=== PATIENT | female | born 1960 | race Caucasian/White ===

== ENCOUNTER 2016-08-25 07:44 | Inpatient (IN) | payer OTHER ==
[~2016-08-25] VITALS: Ht 165.1 cm; Wt 73.9 kg
[~2016-08-25 07:44] MED LIST: ADVIL,NUPRIN,M200 MG PO; DURAGESIC12 MCG TD; DURAGESIC25 MCG TD; KLONOPIN0.5 M1 PO; LIPITOR20 MG PO; LODINE200 MG PO; MORPHINE SULFAT15 M1 PO; NAPROXEN500 MG PO; NEURONTIN400 MG PO; NEURONTIN600 MG PO; PERCOCET 10/1 TABLET PO; PERCOCET 7.51 TABLET PO; PRILOSEC OTC20 MG PO; SAVELLA50 MG PO; TRAMADOL HCL50 MG PO; WELLBUTRIN XL150 MG PO
[2016-08-25 08:15] VITALS: BP 113/81
[2016-08-25 17:59] VITALS: BP 142/76
[2016-08-25 19:46] VITALS: BP 102/60
[2016-08-25 20:00] VITALS: BP 102/60
[2016-08-26 00:10] VITALS: BP 93/51
[2016-08-26 04:00] VITALS: BP 100/52
[2016-08-26 08:00] VITALS: BP 107/61
[2016-08-26 12:02] VITALS: BP 109/58
[2016-08-26] MEDS ORDERED: CYCLOBENZAPRINE10 MG PO (15:41)
[2016-08-26] MEDS ORDERED: OXYCODONE HCL15 MG PO (15:44)
[2016-08-26 16:18] VITALS: BP 105/61
== END 2016-08-26 17:41 | disposition home or self-care (01) | DRG 460 ==
LOC: 2SOUTH 07:44 → 3EAST 17:49
DX: M43.16 Spondylolisthesis, lumbar region (principal); M48.06 Spinal stenosis, lumbar region; M51.37 Other intervertebral disc degeneration, lumbosacral region; F17.200 Nicotine dependence, unspecified, uncomplicated; M46.96 Unspecified inflammatory spondylopathy, lumbar region; G89.29 Other chronic pain; K21.9 Gastro-esophageal reflux disease without esophagitis
CPT/HCPCS: 72100; 76000; 94799; C1713; C1768; C1821; J0131; J0690; J1100; J1170; J1580; J2250; J2405; J2710; J2930; J3010; J3370; J3480; S0020

== ENCOUNTER 2017-01-17 10:50 | Day surgery (SDC) | payer OTHER ==
[~2017-01-17] VITALS: Ht 163.8 cm; Wt 73.5 kg
[~2017-01-17 10:50] MED LIST changes: +CYCLOBENZAPRINE10 MG PO; +CYMBALTA60 MG PO; +MS CONTIN,ORAMO15 M1 PO; +OXYCODONE HCL10 MG PO; +OXYCODONE HCL15 MG PO
== END 2017-01-17 12:40 | disposition home or self-care (01) ==
LOC: PAIN 10:50 → SDC 11:15 → PAIN 11:15
PROC: 3E0U33Z Introduction of Anti-inflammatory into Joints, Percutaneous Approach (ICD-10-PCS; principal; 2017-01-17)
PROC: 3E0U3BZ Introduction of Anesthetic Agent into Joints, Percutaneous Approach (ICD-10-PCS; principal; 2017-01-17)
DX: M46.1 Sacroiliitis, not elsewhere classified (principal); M53.3 Sacrococcygeal disorders, not elsewhere classified; M96.1 Postlaminectomy syndrome, not elsewhere classified; M47.26 Other spondylosis with radiculopathy, lumbar region; M25.559 Pain in unspecified hip; M51.16 Intervertebral disc disorders with radiculopathy, lumbar region; M54.12 Radiculopathy, cervical region; F17.210 Nicotine dependence, cigarettes, uncomplicated; Z79.891 Long term (current) use of opiate analgesic; E66.3 Overweight; Z68.27 Body mass index [BMI] 27.0-27.9, adult; K21.9 Gastro-esophageal reflux disease without esophagitis
CPT/HCPCS: J1030; J2250; J3010; S0020

== ENCOUNTER 2017-04-12 09:50 | Day surgery (SDC) | payer OTHER ==
[~2017-04-12] VITALS: Ht 162.6 cm; Wt 72.6 kg
[~2017-04-12 09:50] MED LIST changes: +KADIAN20 MG PO; -OXYCODONE HCL10 MG PO; +ROXICODONE15 MG PO
== END 2017-04-12 11:36 | disposition home or self-care (01) ==
LOC: PAIN 09:50 → SDC 10:15 → PAIN 10:15
DX: M53.3 Sacrococcygeal disorders, not elsewhere classified (principal); M46.1 Sacroiliitis, not elsewhere classified; M47.26 Other spondylosis with radiculopathy, lumbar region; M96.1 Postlaminectomy syndrome, not elsewhere classified; M51.16 Intervertebral disc disorders with radiculopathy, lumbar region; M79.7 Fibromyalgia; I10 Essential (primary) hypertension; M48.06 Spinal stenosis, lumbar region; M54.12 Radiculopathy, cervical region; Z79.891 Long term (current) use of opiate analgesic; E66.3 Overweight; Z68.27 Body mass index [BMI] 27.0-27.9, adult; F17.210 Nicotine dependence, cigarettes, uncomplicated
CPT/HCPCS: J1030; J2250; J3010; S0020

== ENCOUNTER 2017-11-15 09:52 | Day surgery (SDC) | payer OTHER ==
[~2017-11-15] VITALS: Ht 162.6 cm; Wt 79.4 kg
[~2017-11-15 09:52] MED LIST changes: +ASPIRIN325 MG PO
== END 2017-11-15 12:15 | disposition home or self-care (01) ==
LOC: PAIN 09:52 → SDC 10:15 → PAIN 10:15
PROC: BR161ZZ Fluoroscopy of Lumbar Facet Joint(s) using Low Osmolar Contrast (ICD-10-PCS; principal; 2017-11-15)
PROC: 3E0U3BZ Introduction of Anesthetic Agent into Joints, Percutaneous Approach (ICD-10-PCS; principal; 2017-11-15)
PROC: 3E0U33Z Introduction of Anti-inflammatory into Joints, Percutaneous Approach (ICD-10-PCS; principal; 2017-11-15)
DX: M46.1 Sacroiliitis, not elsewhere classified (principal); M47.816 Spondylosis without myelopathy or radiculopathy, lumbar region; M48.061 Spinal stenosis, lumbar region without neurogenic claudication; M51.26 Other intervertebral disc displacement, lumbar region; M54.16 Radiculopathy, lumbar region; F17.200 Nicotine dependence, unspecified, uncomplicated
CPT/HCPCS: J1030; J2250; S0020